=== PATIENT | male | born 1970 | race Caucasian/White ===

== ENCOUNTER 2018-04-11 06:20 | Emergency (ER) | payer OTHER ==
[~2018-04-11] VITALS: Ht 182.9 cm; Wt 104.3 kg
[~2018-04-11 06:20] MED LIST: PENICILLIN V P500 MG
[2018-04-11] MEDS ORDERED: NORCO 5-325 TA1 EACH PO (11:46)
[2018-04-11] MEDS ORDERED: ROBAXIN-750750 MG PO (11:46)
--- NOTE | 2018-04-11 22:15 | EKG ---
[facility] [address] [facility] [place] [address] Signed Normal sinus rhythm Normal ECG No previous ECGs available Confirmed by JAMES BILLS MD ([id number]) on 04/11/2018 10:14:42 PM Electronically Signed By: JAMES BILLS MD 04/11/18 2215 PATIENT NAME: NELSON CRAWLEY GENO Electrocardiogram DATE OF : 70 PHYSICIAN: JAMES BILLS MD REPORT #: [id number] REPORT IS CONFIDENTIAL AND NOT TO BE RELEASED WITHOUT AUTHORIZATION
--- NOTE | 2018-04-11 22:15 | EKG ---
[facility] [address] [facility] [place] [address] Signed Normal sinus rhythm Normal ECG When compared with ECG of 11-APR-2018 06:23, (Unconfirmed) Vent. rate has decreased BY 35 BPM T wave inversion no longer evident in Anterior leads Confirmed by JAMES BILLS MD ([id number] on 04/11/2018 10:15:07 PM Electronically Signed By: JAMES BILLS MD 04/11/18 2215 PATIENT NAME: NELSON CRAWLEY GENO Electrocardiogram DATE OF : 70 PHYSICIAN: JAMES BILLS MD REPORT #: [id number] REPORT IS CONFIDENTIAL AND NOT TO BE RELEASED WITHOUT AUTHORIZATION
== END 2018-04-11 12:00 | disposition home or self-care (01) ==
LOC: ED 06:20
DX: R07.9 Chest pain, unspecified (principal); F17.200 Nicotine dependence, unspecified, uncomplicated
CPT/HCPCS: 36415; 71045; 71275; 80053; 83874; 84484; 85025; 85379; 93005; 93010; 96361; 96374; 96375; 96376; 99284; J1885; J3010; J7120; Q9967

== ENCOUNTER 2018-12-26 22:55 | Emergency (ER) | payer OTHER ==
[~2018-12-26] VITALS: Ht 182.9 cm; Wt 104.3 kg
[~2018-12-26 22:55] MED LIST changes: +NORCO 5-325 TA1 EACH PO; +ROBAXIN-750750 MG PO
[2018-12-26] MEDS ORDERED: ISENTRESS400 MG PO (23:25)
[2018-12-26] MEDS ORDERED: TRUVADA 200 MG1 EACH PO (23:25)
== END 2018-12-26 23:41 | disposition home or self-care (01) ==
LOC: ED 22:55
DX: S69.91XA Unspecified injury of right wrist, hand and finger(s), initial encounter (principal); F17.200 Nicotine dependence, unspecified, uncomplicated; W46.1XXA Contact with contaminated hypodermic needle, initial encounter
CPT/HCPCS: 36415; 84460; 86703; 86707; 86803; 87350; 99283

== ENCOUNTER 2019-01-12 11:29 | Emergency (ER) | payer OTHER ==
[~2019-01-12] VITALS: Ht 182.9 cm; Wt 104.3 kg
[~2019-01-12 11:29] MED LIST changes: +ISENTRESS400 MG PO; +TRUVADA 200 MG1 EACH PO
--- OUTSIDE RECORDS SUMMARY | 2019-01-12 11:32 | XMS ---
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 E.Diaz VISIT COUNT (12 MO.) 3 [facility] TOTAL 3 NOTE: Visits indicate total known visits. ED/C VISIT TRACKING (12 MO.) 01/12/2019 11:30 [facility] TYPE: Emergency COMPLAINT: - BLOOD EXPOSURE 12/26/2018 22:56 [facility] TYPE: Emergency COMPLAINT: - BLOOD EXPOSURE FROM INMATE DIAGNOSES: - Contact with contaminated hypodermic needle, initial encounter - Unspecified injury of right wrist, hand and finger(s), initial encounter - Nicotine dependence, unspecified, uncomplicated 04/11/2018 06:21 [facility] TYPE: Emergency COMPLAINT: - CHEST PAIN DIAGNOSES: - Nicotine dependence, unspecified, uncomplicated - Chest pain, unspecified INPATIENT VISIT TRACKING (12 MO.) No inpatient visits to display in this time frame [email or web address]
== END 2019-01-12 12:35 ==
LOC: ED 11:29
DX: Z77.21 Contact with and (suspected) exposure to potentially hazardous body fluids (principal); F17.200 Nicotine dependence, unspecified, uncomplicated
CPT/HCPCS: 99282

== ENCOUNTER 2022-10-29 21:44 | Emergency (ER) | payer OTHER ==
[~2022-10-29] VITALS: Ht 182.9 cm; Wt 111.1 kg
[~2022-10-29 21:44] MED LIST changes: +COZAAR25 MG PO; +EFFEXOR XR75 MG PO; +FISH OIL 1,0001 EAC2 PO; +FLAXSEED1000 MG PO; +VIAGRA50 MG PO
--- OUTSIDE RECORDS SUMMARY | 2022-10-29 21:48 | XMS ---
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 Joanna VISIT COUNT (12 MO.) Nilam Perez TOTAL 1 NOTE: Visits indicate total known visits. ED/UCC VISIT TRACKING (12 MO.) 10/29/2022 21:[address] [facility] TYPE: Emergency COMPLAINT: - ABD PAIN INPATIENT VISIT TRACKING (12 MO.) No inpatient visits to display in this time frame [email or web address]
[2022-10-29] MEDS ORDERED: GABAPENTIN100 MG PO (22:13)
[2022-10-30] MEDS ORDERED: DILAUDID2 MG PO (01:33)
== END 2022-10-30 02:14 | disposition home or self-care (01) ==
LOC: ED 21:44
DX: M79.81 Nontraumatic hematoma of soft tissue (principal); I10 Essential (primary) hypertension; F17.200 Nicotine dependence, unspecified, uncomplicated; Z88.8 Allergy status to other drugs, medicaments and biological substances; Z79.899 Other long term (current) drug therapy
CPT/HCPCS: 36415; 74177; 80053; 81001; 83690; 85025; 85610; 87502; 96375; 96376; 99284-25; C9803; J1170; J2405; J7030; Q9967; U0003